=== PATIENT | female | born 1965 | race Caucasian/White ===

== ENCOUNTER 2016-06-09 04:57 | Day surgery (SDC) | payer BC ==
[2016-06-08 08:52] VITALS: BMI 22.6
--- NOTE | 2016-06-08 11:25 | HP ---
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[employer]Y: No: Alzheimer's, CVA, Dementia, Migraine, Multiple Sclerosis, Peripheral Neuropathy, Parkinson's, Seizure, Syncope, TIA, Vertigo, Other Cardiovascular: No: AFIB, Aneurysm, Aortic Insufficiency, Aortic Stenosis, CAD, CHF, Deep Vein Thrombosis, HTN, Hyperlipdemia, FL, Mitral Insufficiency, Mitral Stenosis, Murmur, Pulmonary Hypertension, Other Pulmonary: No: Asthma, Bronchitis, Cancer, COPD, O2 Dependent, Pneumonia, Previously Intubated, Pulmonary Embolus, Pulmonary Fibrosis, Sleep Apnea, Other Gastrointestinal: No: Ascites, Cancer, Constipation, Crohn's Disease, Diverticulitis, Diverticulosis, Esophageal Varices, Gastritis, GERD, GI Bleed, Hemorrhoids, Hiatal Hernia, Inflamatory Bowel Disease, Irritable Bowel Disease, Pancreatitis, Peptic Ulcer Disease, Ulcerative Colitis, Other Hepatobiliary: No: Cirrhosis, Cholelithiasis, Cholecystitis, Choledocholithiasis , Hepatitis A, Hepatitis B, Hepatitis C, Other Renal/: No: Renal Failure, Renal Inusuff, BPH, Cancer, Hematuria, Hemodialysis , Neurogenic Bladder, Renal Calculi, UTI, Other Reproductive: No: Ectopic , Endometriosis, Fibroids, PID, Polycystic Ovary Syndrome, Postmenopausal, Other ...LMP: 05/25/16 Heme/Onc: No: Anemia, B12 Deficiency, Bleeding Disorder, Cancer, Current Chemotherapy, Current Radiation Therapy, Hemochromatosis, Hypercoaguable State, Myeloproliferative Synd, Sickle Cell Disease, Sickle Cell Trait, Thrombocytopenia, Other Infectious Disease: No: AIDS, C-Diff, Herpes Zoster, HIV, MRSA, STD's, Tuberculosis, VREF, Other Musculoskeletal: No: Bursitis, Chronic low back pain, Hemiparesis, Hemiplegia, Osteoarthritis, Paraplegia, Other Rheumatology: No: Fibromyalgia, Gout, Lupus, Rheumatoid Arthritis, Sarcoidosis, Vasculitis, Other ENT: No: Allergic Rhinitis, Sinusitis, Other Endocrine: No: Harmon's Disease, James's Disease, Diabetes Insipidus, Diabetes Mellitus, Hyperparathyroidism, Hyperthyroidism, Hypothyroidism, Osteopenia, SIADH, Other Dermatology: No: Basal Cell, Cellulitis, Eczema, Melanoma, Psoriasis, Squamous Cell, Other Additional Medical History: Hx of fibroid uterus - Current Medications Current Medications: Home Medications Medication Instructions Recorded NK [No Known Home Medication] 06/08/16 Satellite Physical Exam - Physical Examination General Appearance: Well Nourished, Well Developed, Alert & Oriented x3 ENT: Clear, No Discharge, No masses Lung: Clear to auscultation Heart: Regular rate & rhythm, Normal S1, Normal S2 Breasts: Soft, Non-Tender, No masses bilaterally Abdomen: Soft, No tenderness, No CVA Extremities: No edema, No tenderness/swelling Pelvic Exam: Within normal limits External Genitalia, Within normal limits Vagina, Within normal limits Cervix, Other Uterus (fibroids), Other [facility]: Intact, Alert, Oriented Satellite Impression/Plan - Impression/Plan Impression: menorrhagia with uterine fibroids Operative Procedure: Hysteroscopy with endometrial ablation with possible D/C and polypectomy Date to be Performed: 06/09/16
[2016-06-09] MEDS ORDERED: PROPOFOL 20 ML ONE (07:39)
[2016-06-09] MEDS ORDERED: KETOROLAC TROMETHAMINE 30 MG/1 ML VIAL ONE (07:39)
[2016-06-09] MEDS ORDERED: MIDAZOLAM HCL 2 MG/2 ML SINGLE DOSE VIAL ONE (07:39)
[2016-06-09] MEDS ORDERED: DEXAMETHASONE SOD PHOSPHATE 4 MG/1 ML VIAL ONE (07:39)
[2016-06-09] MEDS ORDERED: SUCCINYLCHOLINE CHLORIDE 200 MG/10 ML VIAL ONE (07:40)
[2016-06-09] MEDS ORDERED: SCOPOLAMINE HYDROBROMIDE 1 PATCH PATCH.TD72 ONE (07:41)
[2016-06-09] MEDS ORDERED: ONDANSETRON 4 MG/2 ML VIAL IVPUSH PRN (09:18)
[2016-06-09] MEDS ORDERED: PROMETHAZINE HCL 25 MG/1 ML VIAL IVPUSH PRN (09:18)
[2016-06-09] MEDS ORDERED: ACETAMINOPHEN 1000 MG/100 ML VIAL (NON FORMULARY) IVPB ONE (09:20)
--- NOTE | 2016-06-09 09:26 | PN ---
Progress Note (short form) - Note Progress Note: Discharge instructions Please instruct the patient to remove the scolpolamine patch tomorrow, handle it with gloves and wash hands carefully. Instructions also given to patient preop. Thank you.
[2016-06-09] MEDS ORDERED: LACTATED RINGERS SOLUTION 1,000 ML IV SCH (09:30)
--- NOTE | 2016-06-09 10:21 | OP ---
DATE OF OPERATION: 06/09/2016 SURGEON: Yesenia Lara MD ANESTHESIOLOGIST: Teodora Gallo MD OPERATIVE PROCEDURE: Endometrial ablation using hysteroscopic thermal ablation (HTA). Also dilatation and curettage polypectomy. DESCRIPTION OF PROCEDURE: This patient was brought to the operating room, given anesthesia by Dr. Gallo, placed in the supine position at the time of anesthesia, and then placed in the lithotomy position, prepped and draped in the usual manner for HTA endometrial ablation. The patient was examined. The uterus was noted to be anteverted and enlarged by fibroids. Adnexa negative. The speculum was placed into the vagina after the area was prepped and draped. The anterior lip of the cervix was grasped with a tenaculum. The uterus was sounded to 11 cm. The cervix was dilated with Prado dilators. Hysteroscopic thermal ablation was then initiated by doing the diagnostic endoscopy of the uterus. The patient was noted to have a polypoid structure on the left lateral wall of the endometrium. After this was noted, the inside of the uterus or the endometrium appeared normal except for the polyp. Endometrial ablation was carried out using the HTA method. The procedure lasted 10 minutes. The patient did well. Hemostasis was good. After the operation was completed, after the hysteroscopy was completed, the polyp was removed using a polyp forceps and a curette. Therefore a dilatation and curettage was also carried out. The polyp came out in pieces. After the dilatation and curettage polypectomy, the hysteroscopy was performed again, and the structure was noted to be removed. Hemostasis was good. The patients estimated blood loss was approximately 15 mL. The patients vital signs were stable. After the speculum and tenaculum were removed from the cervix, the patient was transferred to the recovery room in good condition. YESENIA LARA M.D. [id number]
[2016-06-09 10:43] VITALS: TEMP 98
[2016-06-09 13:45] VITALS: BP 100/47; PULSE 60
--- NOTE | 2016-06-10 13:24 | PATH ---
Surgical Pathology Report Patient Name: [facility]. Rec. #: [id number] /Age/Gender: 1965 (Age: 50) / F Account: [id number] Location: [facility] Taken: 06/09/2016 Received: 06/09/2016 Reported: 06/10/2016 Physicians: Vivek Lara M.D. Specimen(s) Received POLYPOID TISSUE Clinical History Menorrhagia Polypoid endometrial tissue Final Diagnosis ENDOMETRIAL TISSUE, CURETTAGE: FRAGMENTS OF BENIGN ENDOMETRIAL POLYP WITH HYALINIZED STROMA. FRAGMENTS OF BENIGN SMOOTH MUSCLE. Comment: [place] red special stain to exclude amyloid deposits is pending; results will be reported in an addendum. Electronically Signed Shivam Samayoa M.D. Addendum Reported: 06/13/2016 Addendum Diagnosis Special stain for amyloid ([place] Red) performed and interpreted at [place], [place] ([id number]) is negative for amyloid. Shivam Samayoa M.D. Gross Description Received in formalin, labeled "endometrial tissue/polypoid tissue" is a 5.0 x 4.0 x 0.6 cm aggregate of fernandez soft tissue fragments admixed with blood clot. The formalin is filtered and the specimen is entirely submitted in 4 cassettes. /06/09/201606/09/2016
== END 2016-06-09 13:45 | disposition home or self-care (01) ==
LOC: JASU-SURG 04:57
PROVIDERS: ATTEND Obstetrics & Gynecology
PROC: 0UB98ZX Excision of Uterus, Via Natural or Artificial Opening Endoscopic, Diagnostic (ICD-10-PCS; principal; 2016-06-09 08:00)
PROC: 0U5B8ZZ Destruction of Endometrium, Via Natural or Artificial Opening Endoscopic (ICD-10-PCS; 2016-06-09 08:00)
DX: N92.0 Excessive and frequent menstruation with regular cycle (principal); D25.9 Leiomyoma of uterus, unspecified
CPT/HCPCS: 84703; 88305-TC; 94760

== ENCOUNTER 2023-02-20 05:27 | Inpatient (IN) | payer BC ==
[2023-02-16 17:11] VITALS: BMI 21.7
[2023-02-20] MEDS ORDERED: CEFAZOLIN 2 GM in DEXTROSE 5%-WATER - 100 ML IVPB ONE (09:10)
[2023-02-20] MEDS ORDERED: PROPOFOL 20 ML ONE ×2 (09:11→11:04)
[2023-02-20] MEDS ORDERED: MIDAZOLAM HCL 2 MG/2 ML SINGLE DOSE VIAL ONE (09:11)
[2023-02-20] MEDS ORDERED: TRANEXAMIC ACID 1000 MG/10 ML VIAL IVPUSH ONE (09:11)
[2023-02-20] MEDS ORDERED: ROCURONIUM BROMIDE 50 MG/5 ML SYRINGE ONE (09:11)
[2023-02-20] MEDS ORDERED: FENTANYL CITRATE/PF 50 MCG/ML VIAL ONE (09:11)
[2023-02-20] MEDS ORDERED: ceFAZolin SODIUM 1 GM VIAL ONE (09:12)
[2023-02-20] MEDS ORDERED: ROPIVACAINE HCL 0.5% 30ML VIAL ONE (09:16)
[2023-02-20] MEDS ORDERED: ACETAMINOPHEN INJECTION 100 ML IVPB ONE ×2 (09:17→12:20)
[2023-02-20] MEDS ORDERED: ONDANSETRON 4 MG/2 ML VIAL IVPUSH PRN (09:27)
[2023-02-20] MEDS ORDERED: IBUPROFEN 600 MG TABLET (FP) PO PRN (09:27)
[2023-02-20] MEDS ORDERED: morphine SULFATE/PF 1 MG/2 ML (2cc Syringe - QUVA) EP ONE (09:27)
[2023-02-20] MEDS ORDERED: ACETAMINOPHEN 325 MG TABLET (FP) PO PRN (09:27)
[2023-02-20] MEDS ORDERED: ceFAZolin SODIUM 1 GM VIAL IVPB ONE (09:48)
[2023-02-20] MEDS ORDERED: METOCLOPRAMIDE HCL INJECTION 10 MG/2 ML VIAL ONE (09:55)
[2023-02-20] MEDS ORDERED: DEXAMETHASONE SOD PHOSPHATE 4 MG/1 ML VIAL ONE (09:55)
[2023-02-20] MEDS ORDERED: SODIUM CHLORIDE 0.9% P/F 10 ML VIAL IJ ONE ×2 (10:06→10:14)
[2023-02-20] MEDS ORDERED: ACETAMINOPHEN 1000 MG/100 ML BAG IVPB PRN ×2 (11:39→14:20)
[2023-02-20] MEDS ORDERED: IBUPROFEN 800 MG/8 ML IJ IVPB PRN ×2 (11:39→14:21)
[2023-02-20] MEDS ORDERED: oxyCODONE HCL 5 MG TABLET PO PRN (11:40)
[2023-02-20] MEDS ORDERED: DOCUSATE SODIUM 100 MG CAPSULE (FP) PO PRN (11:40)
[2023-02-20] MEDS ORDERED: LACTATED RINGERS SOLUTION 1,000 ML IV SCH (13:15)
[2023-02-20] MEDS: CEFAZOLIN SODIUM 2 GM in DEXTROSE 5%-WATER 100 ML IVPB SCH (17:17)
[2023-02-21] MEDS: CEFAZOLIN SODIUM 2 GM in DEXTROSE 5%-WATER 100 ML IVPB SCH (01:11)
[2023-02-21 07:34] LABS: BASO % 0.2 % (0-2.0); EOS % 0.1 % (0-4.5); HEMATOCRIT 34.9 % (32.4-45.2); HEMOGLOBIN 11.9 GM/dL (10.7-15.3); LYMPH % 18.9 % (8-40); MCH 31.9 pg (25.7-33.7); MCHC 34.1 g/dl (32.0-36.0); MEAN CELL VOLUME 93.5 fl (80-96); MEAN PLT VOLUME 9.9 fl (7.5-11.1); MONO % 7.5 % (3.8-10.2); NEUT % 73.3 % (42.8-82.8); PLATELET COUNT 125 10^3/uL (134-434); RBC 3.73 M/mm3 (3.60-5.2); RDW 13.7 % (11.6-15.6); WHITE BLOOD COUNT 8.7 K/mm3 (4.0-10.0)
[2023-02-21 07:56] LABS: POTASSIUM 4.4 mmol/L (3.5-5.1)
[2023-02-21] MEDS ORDERED: oxyCODONE HCL 5 MG TABLET PO PRN ×2 (08:00)
[2023-02-21 08:02] LABS: ALBUMIN 3.2 g/dl (3.4-5.0); BLOOD UREA NITROGEN 8.9 mg/dL (7-18); CALCIUM 8.8 mg/dL (8.5-10.1)
[2023-02-21 08:04] LABS: CREATININE 0.7 mg/dL (0.55-1.3)
[2023-02-21 08:07] LABS: BILIRUBIN,TOTAL 0.8 mg/dL (0.2-1); TOT PROT 6.1 g/dl (6.4-8.2)
[2023-02-21] MEDS ORDERED: diphenhydrAMINE HCL 25 MG CAPSULE (FP) PO ONE (22:30)
[2023-02-22 10:20] VITALS: BP 115/64; PULSE 60; RESP 16; TEMP 98.1
== END 2023-02-22 14:45 | disposition home or self-care (01) | DRG 743 ==
LOC: J2C 05:27 → J3W 15:12
PROVIDERS: ADMIT Obstetrics & Gynecology; ATTEND Obstetrics & Gynecology
PROC: 0UT70ZZ Resection of Bilateral Fallopian Tubes, Open Approach (ICD-10-PCS; 2023-02-20)
PROC: 0UT90ZL Resection of Uterus, Supracervical, Open Approach (ICD-10-PCS; principal; 2023-02-20 08:30)
DX: D25.9 Leiomyoma of uterus, unspecified (principal)
CPT/HCPCS: 36415; 80053; 85025; 86850; 86900; 86901; 88305-TC; 88307-TC; 94010; 94760